=== PATIENT | female | born 1945 | race African-American/Black ===

== ENCOUNTER 2019-08-15 09:18 | Emergency (ER) | payer MEDICARE, MEDICAID ==
[~2019-08-15] VITALS: Ht 177.8 cm; Wt 75.0 kg
[~2019-08-15 09:18] MED LIST: HYDR25TA PO
[2019-08-15] MEDS ORDERED: ASPI81 PO (09:20)
[2019-08-15] MEDS ORDERED: AMLO10TA7 PO (09:20)
[2019-08-15] MEDS ORDERED: KETOROLAC TROMETHAMINE 30 MG/ML VIAL IM ONE (09:45)
[2019-08-15] MEDS ORDERED: TraMADol HCL 50 MG TABLET PO ONE (09:45)
[2019-08-15 12:40] VITALS: BP 135/78
== END 2019-08-15 13:10 | disposition home or self-care (01) ==
LOC: EMS 09:21
DX: S80.01XA Contusion of right knee, initial encounter (principal); Z79.82 Long term (current) use of aspirin; W10.8XXA Fall (on) (from) other stairs and steps, initial encounter; Y93.89 Activity, other specified; Y92.89 Other specified places as the place of occurrence of the external cause; Y99.8 Other external cause status
CPT/HCPCS: 73562; 73610; 96372; 99283; J1885

== ENCOUNTER 2022-06-22 12:14 | Emergency (ER) | payer MEDICARE, MEDICAID ==
[~2022-06-22] VITALS: Ht 162.6 cm; Wt 63.6 kg
[~2022-06-22 12:14] MED LIST changes: +AMLO-258 PO; +ASPI-1450 PO; -HYDR25TA PO
[2022-06-22] MEDS ORDERED: IBUPROFEN 600 MG TABLET PO ONE (17:45)
[2022-06-22 19:00] VITALS: BP 141/83
== END 2022-06-22 19:06 | disposition home or self-care (01) ==
LOC: EMS 12:21
DX: S80.01XA Contusion of right knee, initial encounter (principal); S50.02XA Contusion of left elbow, initial encounter; M19.90 Unspecified osteoarthritis, unspecified site; I10 Essential (primary) hypertension; Z98.890 Other specified postprocedural states; V49.9XXA Car occupant (driver) (passenger) injured in unspecified traffic accident, initial encounter; Y93.89 Activity, other specified; Y92.89 Other specified places as the place of occurrence of the external cause; Y99.8 Other external cause status
CPT/HCPCS: 29530; 99284

== ENCOUNTER 2023-02-08 18:45 | Emergency (ER) | payer MEDICARE, MEDICAID ==
[~2023-02-08] VITALS: Ht 176.5 cm; Wt 72.7 kg
[2023-02-08 20:33] LABS: BASOPHILS % (AUTO) 0.6 % (0.0-2.0); EOSINOPHILS % (AUTO) 0.1 % (1.0-6.0); HEMATOCRIT 49.7 % (36-46); HEMOGLOBIN 16.4 g/dL (12.0-16.0); LYMPHOCYTES % (AUTO) 12.2 % (22.0-44.0); MEAN CORPUSCULAR HEMOGLOBIN 29.5 pg (26.0-34.0); MEAN CORPUSCULAR VOLUME 90 fL (80-100); MONOCYTES # (AUTO) 0.3 K/uL (0.1-1.0); MONOCYTES % (AUTO) 3.7 % (2.0-9.0); NEUTROPHILS # (AUTO) 6.7 K/uL (1.8-7.7); NEUTROPHILS % (AUTO) 83.4 % (40.0-70.0); PLATELET COUNT (AUTO) 286 K/uL (150-450); RED BLOOD CELL COUNT(AUTO) 5.55 MIL/uL (4.00-5.20); RED CELL DISTRIBUTION WIDTH 14.5 % (11.5-14.5)
[2023-02-08 20:34] LABS: APPEARANCE,URINE TURBID (CLEAR); BILIRUBIN,URINE NEGATIVE (NEGATIVE); GLUCOSE, URINE (UA) NEGATIVE (NEGATIVE); KETONES,URINE 40-60 mg/dL (NEGATIVE); LEUKOCYTE ESTERASE ,URINE MODERATE (NEGATIVE); NITRATE,URINE NEGATIVE (NEGATIVE); OCCULT BLOOD,URINE MODERATE (NEGATIVE); PROTEIN,URINE 100-200,SEE CONFIRM mg/dL (NEGATIVE); SPECIFIC GRAVITIY, URINE 1.025 (1.003-1.030)
[2023-02-08 20:40] LABS: ANION GAP 11 mmol/L (8-16); CARBON DIOXIDE 28 mmol/L (22-29); CHLORIDE 99 mmol/L (98-107); CREATININE 0.94 mg/dL (0.60-1.30); GLOMERULAR FILTR. RATE CALC > 60 mL/min (>60); GLUCOSE,RANDOM 131 mg/dL (70-110); POTASSIUM 4.3 mmol/L (3.5-5.1); SODIUM SERUM 138 mmol/L (136-145)
[2023-02-08 20:42] LABS: BACTERIA,URINE Many /HPF (None Seen); SULFOSALICYLIC ACID,URINE 2+ (Negative)
[2023-02-08 20:43] LABS: SQUAMOUS EPITHELIAL CELL,UR Few /LPF (None Seen)
[2023-02-08 20:49] LABS: ALANINE AMINOTRANSFERASE 11 U/L (12-78); ALBUMIN 4.2 g/dL (3.4-5.0); ALKALINE PHOSPHATASE 117 U/L (46-116); ASPARTATE AMINOTRANSFERASE 26 U/L (15-37); BILIRUBIN,TOTAL 0.7 mg/dL (0.1-1.0); LIPASE 55 U/L (73-393)
[2023-02-08] MEDS ORDERED: SODIUM CHLORIDE 0.9% 1,000 ML IV ONE (22:15)
[2023-02-08] MEDS ORDERED: KETOROLAC TROMETHAMINE 30 MG/ML VIAL IVP ONE (22:15)
[2023-02-08] MEDS ORDERED: ONDANSETRON HCL 4 MG/2 ML VIAL IVP ONE (22:15)
[2023-02-08 23:40] VITALS: BP 145/78
[2023-02-08] MEDS ORDERED: CEPH-558 PO (23:51)
== END 2023-02-09 00:13 | disposition home or self-care (01) ==
LOC: EMS 18:46
DX: N39.0 Urinary tract infection, site not specified (principal); R10.84 Generalized abdominal pain; M19.90 Unspecified osteoarthritis, unspecified site; I10 Essential (primary) hypertension; Z79.82 Long term (current) use of aspirin
CPT/HCPCS: 99285; 74176; 96374; 96361; 96375; 80053; 81001; 83690; 84484; 85025; 36415; 87086; 87186; 93005; 81002; J1885; J2405; J7030

== ENCOUNTER 2023-02-10 11:23 | Inpatient (IN) | payer MEDICARE, MEDICAID ==
[~2023-02-10] VITALS: Ht 177.8 cm; Wt 69.5 kg
[~2023-02-10 11:23] MED LIST changes: +CEPH-558 PO
[2023-02-10] MEDS ORDERED: ONDANSETRON HCL 4 MG/2 ML VIAL IVP ONE (12:00)
[2023-02-10] MEDS ORDERED: MORPHINE SULFATE 4 MG/ML SYRINGE IVP ONE ×2 (12:00→15:45)
[2023-02-10] MEDS ORDERED: BARIUM SULFATE 0.1% SUSPENSION 450 ML BOTTLE PO ONE (12:00)
[2023-02-10] MEDS ORDERED: SODIUM CHLORIDE 0.9% 1,000 ML IV ONE ×2 (12:00→16:15)
[2023-02-10 12:12] LABS: BASOPHILS % (AUTO) 0.5 % (0.0-2.0); EOSINOPHILS % (AUTO) 0.1 % (1.0-6.0); HEMATOCRIT 49.7 % (36-46); HEMOGLOBIN 16.4 g/dL (12.0-16.0); LYMPHOCYTES # (AUTO) 1.1 K/uL (1.0-4.8); LYMPHOCYTES % (AUTO) 13.2 % (22.0-44.0); MEAN CORPUSCULAR HEMOGLOBIN 29.6 pg (26.0-34.0); MEAN CORPUSCULAR VOLUME 90 fL (80-100); MONOCYTES # (AUTO) 0.5 K/uL (0.1-1.0); MONOCYTES % (AUTO) 6.2 % (2.0-9.0); NEUTROPHILS # (AUTO) 6.8 K/uL (1.8-7.7); PLATELET COUNT (AUTO) 273 K/uL (150-450); RED BLOOD CELL COUNT(AUTO) 5.54 MIL/uL (4.00-5.20); RED CELL DISTRIBUTION WIDTH 14.3 % (11.5-14.5)
[2023-02-10] MEDS ORDERED: IOHEXOL 350 MG/ML 100 ML VIAL ONE (12:52)
[2023-02-10] MEDS ORDERED: SODIUM CHLORIDE 0.9% 100 ML ONE (12:52)
[2023-02-10 12:55] LABS: ANION GAP 7 mmol/L (8-16); CALCIUM, TOTAL 9.3 mg/dL (8.8-10.5); CARBON DIOXIDE 29 mmol/L (22-29); CHLORIDE 100 mmol/L (98-107); CREATININE 0.89 mg/dL (0.60-1.30); GLOMERULAR FILTR. RATE CALC > 60 mL/min (>60); GLUCOSE,RANDOM 111 mg/dL (70-110); SODIUM SERUM 136 mmol/L (136-145)
[2023-02-10 13:01] LABS: ALANINE AMINOTRANSFERASE 9 U/L (12-78); ALBUMIN 3.5 g/dL (3.4-5.0); ALKALINE PHOSPHATASE 95 U/L (46-116); ASPARTATE AMINOTRANSFERASE 24 U/L (15-37); LIPASE 58 U/L (73-393); TOTAL PROTEIN, SERUM 7.6 g/dL (6.4-8.2)
[2023-02-10 13:04] LABS: LACTIC ACID 1.8 mmol/L (0.4-2.0)
[2023-02-10] MEDS ORDERED: ONDANSETRON HCL 4 MG/2 ML VIAL IVP PRN ×2 (16:15→20:00)
[2023-02-10] MEDS ORDERED: PIPERACILLIN/TAZO 3.375 GM/D5W 50 ML IV ONE (16:15)
[2023-02-10] MEDS: MORPHINE SULFATE 4 MG/ML SYRINGE IVP PRN ×2 (16:59→19:05)
[2023-02-10 19:49] LABS: COVID AG,FIA SOURCE NASOPHARYNGEAL
[2023-02-10] MEDS ORDERED: MORPHINE SULFATE 4 MG/ML SYRINGE IVP PRN (20:00)
[2023-02-10 20:55] VITALS: BP 145/80
[2023-02-10] MEDS: RINGERS SOLUTION,LACTATED 1,000 ML IV SCH (21:16)
[2023-02-11] MEDS ORDERED: SODIUM CHLORIDE 0.9% 250 ML IV ONE (00:34)
[2023-02-11] MEDS: PIPERACILLIN/TAZO 3.375 GM/D5W 50 ML IV SCH ×4 (00:55→17:01)
[2023-02-11 05:01] VITALS: BP 151/84
[2023-02-11] MEDS: RINGERS SOLUTION,LACTATED 1,000 ML IV SCH ×3 (05:51→23:20)
[2023-02-11 07:05] LABS: BASOPHILS % (AUTO) 0.1 % (0.0-2.0); EOSINOPHILS % (AUTO) 0 % (1.0-6.0); HEMATOCRIT 43.2 % (36-46); HEMOGLOBIN 14.2 g/dL (12.0-16.0); LYMPHOCYTES # (AUTO) 0.5 K/uL (1.0-4.8); LYMPHOCYTES % (AUTO) 4.3 % (22.0-44.0); MEAN CORPUSCULAR HEMOGLOBIN 29.3 pg (26.0-34.0); MEAN CORPUSCULAR HGB CONC 32.9 G/dL (31.0-37.0); MEAN CORPUSCULAR VOLUME 89 fL (80-100); MONOCYTES # (AUTO) 0.8 K/uL (0.1-1.0); NEUTROPHILS # (AUTO) 11.4 K/uL (1.8-7.7); PLATELET COUNT (AUTO) 242 K/uL (150-450); RED BLOOD CELL COUNT(AUTO) 4.84 MIL/uL (4.00-5.20); RED CELL DISTRIBUTION WIDTH 14.4 % (11.5-14.5)
[2023-02-11 07:09] LABS: NEUTROPHILS % (AUTO) 89.6 % (40.0-70.0)
[2023-02-11 07:22] LABS: ANION GAP 7 mmol/L (8-16); CALCIUM, TOTAL 8.8 mg/dL (8.8-10.5); CARBON DIOXIDE 26 mmol/L (22-29); CHLORIDE 102 mmol/L (98-107); CREATININE 0.75 mg/dL (0.60-1.30); GLOMERULAR FILTR. RATE CALC > 60 mL/min (>60); GLUCOSE,RANDOM 128 mg/dL (70-110); POTASSIUM 3.1 mmol/L (3.5-5.1); SODIUM SERUM 135 mmol/L (136-145)
[2023-02-11] MEDS ORDERED: RINGERS SOLUTION,LACTATED 1,000 ML IV ONE ×2 (07:30→09:42)
[2023-02-11] MEDS: MORPHINE SULFATE 4 MG/ML SYRINGE IVP PRN ×2 (07:44→23:21)
[2023-02-11 07:57] VITALS: BP 155/93
[2023-02-11] MEDS ORDERED: BUPIVACAINE 0.25%/EPI 1:200,000/PF 10 ML VIAL ONE (08:24)
[2023-02-11] MEDS ORDERED: MEPERIDINE-PF 25 MG/ML VIAL IVP PRN (08:45)
[2023-02-11] MEDS ORDERED: HYDROmorphone HCL 2 MG/ML SYRINGE IVP PRN (08:45)
[2023-02-11] MEDS ORDERED: FentaNYL CITRATE PF 100 MCG/2 ML VIAL IVP PRN (08:45)
[2023-02-11] MEDS ORDERED: PROPOFOL 1% 20 ML VIAL IVP ONE (12:00)
[2023-02-11] MEDS ORDERED: ROCURONIUM BROMIDE 10 MG/ML 5 ML VIAL IVP ONE (12:00)
[2023-02-11] MEDS ORDERED: MORPHINE SULFATE/PF 0.5 MG/ML 10 ML AMP IVP ONE (12:00)
[2023-02-11] MEDS ORDERED: SUGAMMADEX SODIUM 200 MG/2 ML VIAL IVP ONE (12:00)
[2023-02-11] MEDS ORDERED: LIDOCAINE/PF 2% 5 ML VIAL IM ONE (12:00)
[2023-02-11] MEDS ORDERED: ACETAMINOPHEN/ISO-OSM 1000 MG/100 ML BOTTLE IV ONE (12:00)
[2023-02-11] MEDS ORDERED: ONDANSETRON HCL 4 MG/2 ML VIAL IVP ONE (12:00)
[2023-02-11] MEDS ORDERED: EPHEDrine SULFATE 50 MG/ML VIAL IM ONE (12:00)
[2023-02-11] MEDS ORDERED: KETOROLAC TROMETHAMINE 60 MG/2 ML VIAL IM ONE (12:00)
[2023-02-11] MEDS ORDERED: FentaNYL CITRATE PF 100 MCG/2 ML VIAL IVP ONE (12:00)
[2023-02-11] MEDS ORDERED: 0.9% SODIUM CHLORIDE 10 ML VIAL IVP ONE (12:00)
[2023-02-11] MEDS ORDERED: DEXAMETHASONE SOD PHOS 4 MG/ML VIAL IVP ONE (12:00)
[2023-02-11 14:08] VITALS: BP 126/68
[2023-02-11] MEDS ORDERED: POTASSIUM CHLORIDE 20 MEQ ER TABLET PO ONE (15:00)
[2023-02-11 20:04] VITALS: BP 107/67
[2023-02-11] MEDS: OXYGEN THERAPY IH SCH (20:08)
[2023-02-12] MEDS: PIPERACILLIN/TAZO 3.375 GM/D5W 50 ML IV SCH ×4 (00:05→17:48)
[2023-02-12] MEDS: HEPARIN SODIUM,PORCINE 5,000 UNITS/ML VIAL SQ SCH ×3 (00:06→15:15)
[2023-02-12] MEDS ORDERED: SODIUM CHLORIDE 0.9% 250 ML IV ONE (00:10)
[2023-02-12 04:55] VITALS: BP 133/80
[2023-02-12] MEDS: RINGERS SOLUTION,LACTATED 1,000 ML IV SCH ×3 (06:25→22:39)
[2023-02-12 06:58] LABS: ANION GAP 6 mmol/L (8-16); CALCIUM, TOTAL 8.8 mg/dL (8.8-10.5); CARBON DIOXIDE 28 mmol/L (22-29); CHLORIDE 102 mmol/L (98-107); CREATININE 0.88 mg/dL (0.60-1.30); GLOMERULAR FILTR. RATE CALC > 60 mL/min (>60); GLUCOSE,RANDOM 87 mg/dL (70-110); POTASSIUM 3.8 mmol/L (3.5-5.1); SODIUM SERUM 136 mmol/L (136-145)
[2023-02-12] MEDS: OXYGEN THERAPY IH SCH ×2 (08:00→20:39)
[2023-02-12 08:01] VITALS: BP 123/75
[2023-02-12] MEDS: MORPHINE SULFATE 4 MG/ML SYRINGE IVP PRN ×2 (08:10→19:57)
[2023-02-12 11:01] VITALS: BP 123/59
[2023-02-12] MEDS: METOPROLOL SUCCINATE 50 MG ER TABLET PO SCH (15:12)
[2023-02-12 15:49] VITALS: BP 132/80
[2023-02-12] MEDS ORDERED: CEPH500C2 PO (17:05)
[2023-02-12 19:41] VITALS: BP 132/77
[2023-02-13] VITALS (7 sets, daily range): BP systolic 121–145; BP diastolic 68–86
[2023-02-13] MEDS: PIPERACILLIN/TAZO 3.375 GM/D5W 50 ML IV SCH ×5 (00:42→23:32)
[2023-02-13] MEDS: HEPARIN SODIUM,PORCINE 5,000 UNITS/ML VIAL SQ SCH ×4 (00:42→23:32)
[2023-02-13] MEDS: RINGERS SOLUTION,LACTATED 1,000 ML IV SCH ×5 (03:48→23:32)
[2023-02-13 06:28] LABS: BASOPHILS % (AUTO) 0.3 % (0.0-2.0); EOSINOPHILS % (AUTO) 1.7 % (1.0-6.0); HEMATOCRIT 37.8 % (36-46); HEMOGLOBIN 12.3 g/dL (12.0-16.0); LYMPHOCYTES # (AUTO) 0.8 K/uL (1.0-4.8); LYMPHOCYTES % (AUTO) 12.9 % (22.0-44.0); MEAN CORPUSCULAR HEMOGLOBIN 29.1 pg (26.0-34.0); MEAN CORPUSCULAR HGB CONC 32.4 G/dL (31.0-37.0); MEAN CORPUSCULAR VOLUME 90 fL (80-100); MONOCYTES # (AUTO) 0.4 K/uL (0.1-1.0); MONOCYTES % (AUTO) 6.9 % (2.0-9.0); NEUTROPHILS # (AUTO) 4.8 K/uL (1.8-7.7); NEUTROPHILS % (AUTO) 78.2 % (40.0-70.0); PLATELET COUNT (AUTO) 198 K/uL (150-450); RED BLOOD CELL COUNT(AUTO) 4.21 MIL/uL (4.00-5.20); RED CELL DISTRIBUTION WIDTH 14.5 % (11.5-14.5)
[2023-02-13 06:46] LABS: CHLORIDE 102 mmol/L (98-107); POTASSIUM 3.5 mmol/L (3.5-5.1); SODIUM SERUM 137 mmol/L (136-145)
[2023-02-13 07:16] LABS: ANION GAP 8 mmol/L (8-16); CALCIUM, TOTAL 8.4 mg/dL (8.8-10.5); CARBON DIOXIDE 27 mmol/L (22-29); CREATININE 0.72 mg/dL (0.60-1.30); GLOMERULAR FILTR. RATE CALC > 60 mL/min (>60); GLUCOSE,RANDOM 82 mg/dL (70-110)
[2023-02-13] MEDS: OXYGEN THERAPY IH SCH ×2 (08:00→20:19)
[2023-02-13] MEDS: METOPROLOL SUCCINATE 50 MG ER TABLET PO SCH (09:31)
[2023-02-13] MEDS: MORPHINE SULFATE 4 MG/ML SYRINGE IVP PRN (12:29)
[2023-02-13] MEDS: AmLODIPine BESYLATE 5 MG TABLET PO SCH (12:31)
[2023-02-14 00:15] VITALS: BP 140/53
[2023-02-14] MEDS: MORPHINE SULFATE 4 MG/ML SYRINGE IVP PRN (03:30)
[2023-02-14 05:07] VITALS: BP 145/76
[2023-02-14] MEDS: PIPERACILLIN/TAZO 3.375 GM/D5W 50 ML IV SCH (05:59)
[2023-02-14 07:24] LABS: BASOPHILS % (AUTO) 0.3 % (0.0-2.0); EOSINOPHILS % (AUTO) 7.2 % (1.0-6.0); HEMATOCRIT 37.2 % (36-46); HEMOGLOBIN 12.3 g/dL (12.0-16.0); LYMPHOCYTES # (AUTO) 0.8 K/uL (1.0-4.8); LYMPHOCYTES % (AUTO) 12.2 % (22.0-44.0); MEAN CORPUSCULAR HEMOGLOBIN 29.5 pg (26.0-34.0); MEAN CORPUSCULAR HGB CONC 33.1 G/dL (31.0-37.0); MEAN CORPUSCULAR VOLUME 89 fL (80-100); MONOCYTES # (AUTO) 0.6 K/uL (0.1-1.0); MONOCYTES % (AUTO) 8.5 % (2.0-9.0); NEUTROPHILS # (AUTO) 4.7 K/uL (1.8-7.7); NEUTROPHILS % (AUTO) 71.8 % (40.0-70.0); PLATELET COUNT (AUTO) 218 K/uL (150-450); RED BLOOD CELL COUNT(AUTO) 4.16 MIL/uL (4.00-5.20); RED CELL DISTRIBUTION WIDTH 14.1 % (11.5-14.5)
[2023-02-14 07:38] VITALS: BP 150/90
[2023-02-14 07:38] LABS: ANION GAP 9 mmol/L (8-16); CARBON DIOXIDE 28 mmol/L (22-29); CHLORIDE 101 mmol/L (98-107); CREATININE 0.72 mg/dL (0.60-1.30); GLUCOSE,RANDOM 82 mg/dL (70-110); POTASSIUM 3.3 mmol/L (3.5-5.1); SODIUM SERUM 137 mmol/L (136-145)
[2023-02-14 07:39] LABS: CALCIUM, TOTAL 8.4 mg/dL (8.8-10.5); GLOMERULAR FILTR. RATE CALC > 60 mL/min (>60)
[2023-02-14] MEDS: RINGERS SOLUTION,LACTATED 1,000 ML IV SCH (08:43)
[2023-02-14] MEDS: HEPARIN SODIUM,PORCINE 5,000 UNITS/ML VIAL SQ SCH (08:44)
[2023-02-14] MEDS: AmLODIPine BESYLATE 5 MG TABLET PO SCH (08:44)
[2023-02-14] MEDS: METOPROLOL SUCCINATE 50 MG ER TABLET PO SCH (09:14)
[2023-02-14 11:28] VITALS: BP 145/85
[2023-02-14] MEDS ORDERED: POTASSIUM CHLORIDE 20 MEQ ER TABLET PO ONE (11:45)
[2023-02-14] MEDS ORDERED: AMLO-257 PO (12:07)
[2023-02-14] MEDS ORDERED: METO-558 PO (12:09)
[2023-02-14] MEDS ORDERED: AMOX1TAB16 PO (12:11)
== END 2023-02-14 12:00 | disposition home or self-care (01) | DRG 350 ==
LOC: EMS 11:30 → 6S 20:25 → 5N 02-11 13:38 → 5S 02-12 21:00
PROVIDERS: ADMIT Internal Medicine; ATTEND Internal Medicine
PROC: 0YU70JZ Supplement Right Femoral Region with Synthetic Substitute, Open Approach (ICD-10-PCS; principal; 2023-02-11 08:55)
DX: K41.30 Unilateral femoral hernia, with obstruction, without gangrene, not specified as recurrent (principal); K65.0 Generalized (acute) peritonitis; K56.609 Unspecified intestinal obstruction, unspecified as to partial versus complete obstruction; I10 Essential (primary) hypertension; E86.0 Dehydration; E78.5 Hyperlipidemia, unspecified; E87.6 Hypokalemia; I49.9 Cardiac arrhythmia, unspecified; Z96.651 Presence of right artificial knee joint; Z20.822 Contact with and (suspected) exposure to COVID-19; Z59.7 Insufficient social insurance and welfare support; Z79.899 Other long term (current) drug therapy; Z79.82 Long term (current) use of aspirin
CPT/HCPCS: 71045; 74177; 80048; 80053; 83605; 83690; 83735; 84443; 84484; 85025; 87040; 87081; 93005; 93306; 99285; G0378; J0131; J1100; J1644; J1885; J2270; J2274; J2405; J2543; J2704; J3010; J3490; J7030; J7050; J7120; Q9967; 36415-L1; 36415-TC; Z7610